=== PATIENT | female | born 1975 ===

== ENCOUNTER 2017-07-04 19:53 | Emergency (ER) | payer SELFPAY ==
[2017-07-04 20:11] VITALS: BP 111/70; PULSE 60; RESP 22; TEMP 97.9; O2SAT 98
--- NOTE | 2017-07-04 20:35 | ED PDOC ---
"HPI: Back Time Seen by Provider: 07/04/17 20:10 Chief Complaint (Nursing): Back Pain Chief Complaint (Provider): back pain History Per: Patient History/Exam Limitations: no limitations Previous Symptoms: None Associated Symptoms: None Additional Complaint(s): 41yo F in ED for eval back pain x 2 weeks worsening unrelieved with naproxen- which when she tool it noted chest pressure(states she normally get chest pressure when she take naproxen), chest pressure now resolved. c/o of lower back pain without fever chills nausea or vomiting denies hematuira dysuria abd edmondson denies recent injury. - Risk Factors AAA Risk Factors: Neg: Older Than 49 Years Of Age, Hypertension, Connective Tissue Disease, Marfan's Syndrome, Candelario-Danlos Syndrome, Prior AAA, 1st Degree Relative/s With AAA Past Medical History Reviewed: Historical Data, Nursing Documentation, Vital Signs Vital Signs: Last Vital Signs Temp 97.9 F 07/04/17 20:08 Pulse 60 07/04/17 20:08 Resp 22 07/04/17 20:08 BP 111/70 07/04/17 20:08 Pulse Ox 98 07/04/17 20:08 - Medical History PMH: Hypothyroidism, Migraine - Surgical History Surgical History: Cholecystectomy - Family History Family History: States: Unknown Family Hx - Home Medications Home Medications: Ambulatory Orders Medication Instructions Recorded Levothyroxine [Synthroid] 75 mcg PO DAILY 09/22/15 Cholecalciferol (Vitamin D3) 1 tab PO DAILY 03/03/16 [Vitamin D] Ciprofloxacin [Cipro] 500 mg PO BID #6 tab 03/03/16 [place]-3 Fatty Acids/Fish Oil [Fish 1 cap PO DAILY 03/03/16 Oil 1,000 mg Softgel] Cyclobenzaprine [Cyclobenzaprine 10 mg PO BID #14 tab 07/04/17 HCl] Tramadol HCl [Ultram] 50 mg PO Q6 #15 tab 07/04/17 - Allergies Allergies/Adverse Reactions: Allergies Allergy/AdvReac Type Severity Reaction Status Date / Time No Known Allergies Allergy Verified 03/03/16 09:29 Review of Systems ROS Statement: Except As Marked, All Systems Reviewed And Found Negative Gastrointestinal: Negative for: Nausea, Vomiting, Abdominal Pain Genitourinary Female: Negative for: Dysuria, Hematuria Musculoskeletal: Positive for: Back Pain Physical Exam - Reviewed Nursing Documentation Reviewed: Yes Vital Signs Reviewed: Yes - Physical Exam Appears: Positive for: Non-toxic, No Acute Distress, Uncomfortable Head Exam: Positive for: ATRAUMATIC, NORMAL INSPECTION, NORMOCEPHALIC Skin: Positive for: Normal Color, Warm, DRY Cardiovascular/Chest: Positive for: Regular Rate, Rhythm Respiratory: Positive for: CNT, Normal Breath Sounds Gastrointestinal/Abdominal: Positive for: Normal Exam, Bowel Sounds, Soft. Negative for: Tenderness Back: Positive for: L CVA Tenderness. Negative for: Decreased ROM, Muscle Spasm Extremity: Positive for: Normal ROM Neurologic/Psych: Positive for: Alert, Oriented - Laboratory Results Urine POC: Negative Urine dip results: Positive for: Blood. Negative for: Leukocyte Esterase, Nitrate, Ketones, Glucose, Bilirubin, Protein - ECG O2 Sat by Pulse Oximetry: 98 - Progress ED Course And Treament: pt with hematuria will get CT scan r.o renal stone. Medical Decision Making Medical Decision Making: FINDINGS: Lower thorax: The bilateral lung bases are clear. ABDOMEN: Liver: No acute findings Gallbladder and bile ducts: The gallbladder is surgically absent. No intra- extrahepatic biliary ductal dilation. Pancreas: Limited evaluation secondary to the lack of intravenous contrast. Spleen: No acute findings. Adrenals: No acute findings. Kidneys and ureters: No obstructing stones. No hydronephrosis. PELVIS: Bladder: No acute findings. Reproductive: No acute findings. Appendix: The appendix is not definitively visualized, however no pericecal inflammatory change is identified to suggest the presence of acute appendicitis. ABDOMEN and PELVIS: AKI PARADA | Final Radiology Report CONFIDENTIALITY STATEMENT This report is intended only for use by the referring physician, and only in accordance with law. If you received this in error, call [phone]. Page 2 of 2 Stomach and bowel: No acute findings. Peritoneum: No acute findings. Lymph nodes: Limited evaluation without intravenous contrast. Vasculature: No aortic aneurysm. Bones: No acute fracture. IMPRESSION: No obstructive uropathy. Thank you for allowing us to participate in the care of your patient. Dictated and Authenticated by: Marija Ghotra MD 07/04/2017 11:07 PM Eastern Time ([place] & [place]) Pt will be d.c with flexril and ultram for pain advised to have pmd f.u and if needed MRI with specialist. Disposition - Clinical Impression Clinical Impression: Back pain - Patient ED Disposition Is Patient to be Admitted: No Counseled Patient/Family Regarding: Studies Performed, Diagnosis, Need For Followup, Rx Given - Disposition Referrals: [facility] [Outside] [facility] [Outside] Disposition: Routine/Home Disposition Time: 23:15 Condition: STABLE Prescriptions: Cyclobenzaprine [Cyclobenzaprine HCl] 10 mg PO BID #14 tab Tramadol HCl [Ultram] 50 mg PO Q6 #15 tab Instructions: Back Pain (ED), Chronic Back Pain (ED), Lumbar Radiculopathy (ED) Forms: [employer] (Chinese) Print Language: KYRGYZ"
[2017-07-04 21:04] LABS: RBC URINE 4 /hpf (0-3); URINE BILIRUBIN NEGATIVE (NEGATIVE); URINE BLOOD SMALL (NEGATIVE); URINE COLOR YELLOW (YELLOW); URINE GLUCOSE (UA) NEG (Normal); URINE KETONE NEGATIVE (NEGATIVE); URINE LEUKOCYTE ESTERASE SMALL Leu/uL (Negative); URINE PROTEIN NEGATIVE (NEGATIVE); WBC URINE 3 /hpf (0-5)
--- NOTE | 2017-07-04 23:07 | CT ---
EXAM: CT Abdomen and Pelvis Without Intravenous Contrast CLINICAL HISTORY: 41 years old, female; Pain; Abdominal pain; Flank; Other: Hematuria; Additional info: Flank pain hematuria TECHNIQUE: Axial computed tomography images of the abdomen and pelvis without intravenous contrast. All CT scans at this facility use one or more dose reduction techniques, viz.: automated exposure control; ma/kV adjustment per patient size (including targeted exams where dose is matched to indication; i.e. head); or iterative reconstruction technique. Coronal and sagittal reformatted images were created and reviewed. COMPARISON: None FINDINGS: Lower thorax: The bilateral lung bases are clear. ABDOMEN: Liver: No acute findings Gallbladder and bile ducts: The gallbladder is surgically absent. No intra-extrahepatic biliary ductal dilation. Pancreas: Limited evaluation secondary to the lack of intravenous contrast. Spleen: No acute findings. Adrenals: No acute findings. Kidneys and ureters: No obstructing stones. No hydronephrosis. PELVIS: Bladder: No acute findings. Reproductive: No acute findings. Appendix: The appendix is not definitively visualized, however no pericecal inflammatory change is identified to suggest the presence of acute appendicitis. ABDOMEN and PELVIS: Stomach and bowel: No acute findings. Peritoneum: No acute findings. Lymph nodes: Limited evaluation without intravenous contrast. Vasculature: No aortic aneurysm. Bones: No acute fracture. IMPRESSION: No obstructive uropathy.
== END 2017-07-04 23:36 | disposition home or self-care (01) ==
LOC: H.ER 19:53
DX: M54.5 Low back pain (principal); R07.89 Other chest pain; R10.9 Unspecified abdominal pain

== ENCOUNTER 2019-01-05 10:06 | Emergency (ER) | payer OTHER, SELFPAY ==
--- NOTE | 2019-01-05 10:49 | ED PDOC ---
HPI: Chest Pain Time Seen by Provider: 01/05/19 10:29 Chief Complaint (Nursing): Chest Pain Chief Complaint (Provider): chest pain History Per: Patient History/Exam Limitations: no limitations Additional Complaint(s): 43 y/o F with hx of hypothyroidism who presents with left sided chest pressure. PT states that she was at work yesterday afternoon when she began having gradual onset of Left sided chest pain described as pressure with numbness and tingling down her left arm and to scapular area. She took Ibuprofen 400mg PO x 1 with improvement in pain but pain persisted. This morning pain worsened gain and began about 6am. She continues to have pain. It is worse with deep breath or raising her arms above her head. Further admits to having neck pain. Denies FH of premature CAD or personal hx of CAD/MS, HTN, HL, DM or trauma to area. Works packing things at a factory. Further denies associated SOB, dizziness or palpitations. She has not taken any medication today. Past Medical History Reviewed: Historical Data, Nursing Documentation, Vital Signs - Medical History PMH: Hypothyroidism, Migraine - Surgical History Surgical History: Cholecystectomy - Family History Family History: States: Unknown Family Hx - Home Medications Home Medications: Ambulatory Orders Medication Instructions Recorded Levothyroxine [Synthroid] 75 mcg PO DAILY 09/22/15 Cholecalciferol (Vitamin D3) 1 tab PO DAILY 03/03/16 [Vitamin D] Ciprofloxacin [Cipro] 500 mg PO BID #6 tab 03/03/16 [place]-3 Fatty Acids/Fish Oil [Fish 1 cap PO DAILY 03/03/16 Oil 1,000 mg Softgel] Cyclobenzaprine [Cyclobenzaprine 10 mg PO BID #14 tab 07/04/17 HCl] Tramadol HCl [Ultram] 50 mg PO Q6 #15 tab 07/04/17 Cyclobenzaprine [Cyclobenzaprine 10 mg PO Q8 PRN 5 Days tab 01/05/19 HCl] Ibuprofen [Motrin Tab] 600 mg PO Q6 PRN 7 Days tab 01/05/19 - Allergies Allergies/Adverse Reactions: Allergies Allergy/AdvReac Type Severity Reaction Status Date / Time No Known Allergies Allergy Verified 01/05/19 10:39 ARSLAN Risk Score for UA/NSTEMI - ARSLAN Risk Score Age > 64: NO 3 or more CAD Risk Factors: NO Known CAD (Stenosis greater than 50%): NO Aspirin use in past 7 days: NO Severe Angina: NO EKG ST changes greater than 0.5mm: NO ARSLAN Score: 0 Risk %: 5% Wells Criteria for PE - Wells Criteria for Pulmonary Embolism Clinical Signs and Symptoms of DVT: No P.E is #1 Diagnosis, or Equally Likely: No Heart Rate >100: No Immobilization at least 3 days;Surgery previous 4 weeks: No Previous, objectively diagnosed PE or DVT: No Hemoptysis: No Malignancy w/treatment within 6 months, or palliative: No Total Score: 0 Review of Systems Cardiovascular: Positive for: Chest Pain. Negative for: Palpitations, Light Headedness Respiratory: Positive for: Pleuritic Pain. Negative for: Cough, Shortness of Breath Gastrointestinal: Negative for: Nausea, Vomiting Musculoskeletal: Positive for: Neck Pain Physical Exam - Reviewed Nursing Documentation Reviewed: Yes Vital Signs Reviewed: Yes - Physical Exam Appears: Positive for: Non-toxic Neck: Negative for: Painless ROM (pain with lateral rotation of neck, normal flexion/extension. + tenderness on palpation of left lateral neck and shoulder. NO erythema, swelling or ecchymosis. ) Cardiovascular/Chest: Positive for: Regular Rate, Rhythm. Negative for: Chest Non Tender (+ tenderness on palpation of left chest) Respiratory: Positive for: Normal Breath Sounds, Other (+ reproducible pain with deep breath) Gastrointestinal/Abdominal: Positive for: Normal Exam Back: Positive for: Normal Inspection. Negative for: Vertebral Tenderness Neurological/Psych: Positive for: Awake, Alert - Laboratory Results Result Diagrams: 01/05/19 11:01 01/05/19 11:01 Medical Decision Making Medical Decision Making: CBC, CMP, Trop URine preg Toradol 30mg IM x 1 Flexeril 10mg PO x 1 Tele EKG EKG: sinus, HR 60, no ischemic change. Incomplete RBBB. 14:00 Re-evaluated: BP 94/67 and HR 50s, Trop negative, CXR PA and lateral ordered. NS 1L IV x 1. Pt states that pain is unchanged after medications. Baseline SBP 111 in 2017. CXR PA and lateral: LINES AND TUBES: None. LUNG AND PLEURA: The lungs are well inflated and clear. No pleural effusion or pneumothorax. HEART AND MEDIASTINUM: The heart is not enlarged. No aortic atherosclerotic calcifications present. The hilar and mediastinal contours are within normal limits. SKELETAL STRUCTURES: The bony structures are within normal limits for the patient's age. VISUALIZED UPPER ABDOMEN: Normal. OTHER FINDINGS: None. IMPRESSION: No active pulmonary disease. 16:30: re-evaluated, pain remains unchanged, Lidoderm patch ordered 18:30: pain remains unchanged. SPB 90s, pt denies lightheadedness, pain remains reproducible. Family practice resident called to see if outpatient follow up can be arranged in 1 - 2 days and will contact pre owned sales consultant. Case discussed with Dr. Hopson. Stable for d/c home. Disposition - Clinical Impression Clinical Impression: Chest wall pain, Neck pain - Patient ED Disposition Is Patient to be Admitted: No Counseled Patient/Family Regarding: Studies Performed, Diagnosis, Rx Given - Disposition Referrals: [facility] [Outside] Disposition: Routine/Home Disposition Time: 19:06 Condition: STABLE Additional Instructions: Follow up with your primary care doctor for further evaluation of pain. Take Ibuprofen and Cyclobenzaprine (muscle relaxer) for pain. Avoid taking muscle re laxer if you will be driving or operating heavy machinery as it can cause drowsiness. Return to ER if your pain worsens or you develop shortness of breath. Prescriptions: Cyclobenzaprine [Cyclobenzaprine HCl] 10 mg PO Q8 PRN 5 Days tab PRN Reason: Muscle Spasm Ibuprofen [Motrin Tab] 600 mg PO Q6 PRN 7 Days tab PRN Reason: Pain, Moderate (4-7) Instructions: Chest Pain That Is Not Caused by the Heart (DC), Generalized Neck Pain (DC) Forms: [facility] (Sinhala) Print Language: WOLOF
[2019-01-05 11:18] LABS: BASO % 0.5 % (0.0-2.0); EOS # 1.1 K/uL (0.0-0.7); HEMOGLOBIN 12.8 g/dL (12.0-16.0); LYMPH # 1.7 K/uL (1.0-4.3); LYMPH % 24.2 % (20.0-40.0); MEAN CELL VOLUME 92.7 fl (81.0-99.0); MEAN CORPUSCULAR HEMOGLOBIN 31.1 pg (27.0-31.0); MEAN CORPUSCULAR HGB CONC 33.6 g/dL (33.0-37.0); MEAN PLATELET VOLUME 8.9 fl (7.2-11.7); MONO # 0.4 K/uL (0.0-0.8); MONO % 5.1 % (0.0-10.0); NEUT # 3.9 K/uL (1.8-7.0); NEUT % 55.2 % (50.0-75.0); NRBC % 0.1 % (0.0-0.0); RBC 4.11 Mil/uL (3.80-5.20)
[2019-01-05 11:35] LABS: ALB/GLOB RATIO 1.3 (1.0-2.1); ALBUMIN 4.5 g/dL (3.5-5.0); ALT/SGPT 35 U/L (9-52); AST/SGOT 26 U/L (14-36); BLOOD UREA NITROGEN 9 mg/dl (7-17); CALCIUM 8.9 mg/dL (8.4-10.2); GFR NON-AFRICAN AMERICAN > 60
[2019-01-05] MEDS ORDERED: Sodium Chloride 0.9% 1,000 ML IV STA (12:38)
--- NOTE | 2019-01-05 14:17 | RAD ---
Date of service: 01/05/2019 HISTORY: Cough and shortness of breath COMPARISON: No prior. TECHNIQUE: Chest PA and lateral FINDINGS: LINES AND TUBES: None. LUNG AND PLEURA: The lungs are well inflated and clear. No pleural effusion or pneumothorax. HEART AND MEDIASTINUM: The heart is not enlarged. No aortic atherosclerotic calcifications present. The hilar and mediastinal contours are within normal limits. SKELETAL STRUCTURES: The bony structures are within normal limits for the patient's age. VISUALIZED UPPER ABDOMEN: Normal. OTHER FINDINGS: None. IMPRESSION: No active pulmonary disease.
[2019-01-05] MEDS ORDERED: Lidocaine 5% Patch TD SCH (14:45)
[2019-01-05] MEDS ORDERED: Lidocaine 5% Patch TD ONE (15:14)
[2019-01-05 18:19] VITALS: O2SAT 99
[2019-01-05 19:27] VITALS: BP 91/61; PULSE 59; RESP 26; TEMP 96.8
--- NOTE | 2019-01-06 00:33 | CARD ---
APPROVED REPORT Date of service: 01/05/2019 EKG Measurement Heart [id number] <Conclusion> Normal sinus rhythm Incomplete right bundle branch block Borderline ECG
== END 2019-01-05 19:17 | disposition home or self-care (01) ==
LOC: H.ER 10:06
DX: R07.89 Other chest pain (principal); M54.2 Cervicalgia; E03.9 Hypothyroidism, unspecified
CPT/HCPCS: 71046; 80053; 81025; 84484; 85025; 93005; 96361; 96374; 99285; J1885; J7030